=== PATIENT | male | born 1965 | race Two or more races ===

== ENCOUNTER 2022-11-07 14:18 | Emergency (ER) | payer MEDICARE, MEDICAID ==
[~2022-11-07] VITALS: Ht 165.1 cm; Wt 68.6 kg
[2022-11-07 16:41] VITALS: BP 149/69
== END 2022-11-07 16:49 | disposition home or self-care (01) ==
LOC: ER 14:18
DX: S86.911A Strain of unspecified muscle(s) and tendon(s) at lower leg level, right leg, initial encounter (principal); I10 Essential (primary) hypertension; E11.9 Type 2 diabetes mellitus without complications; W01.0XXA Fall on same level from slipping, tripping and stumbling without subsequent striking against object, initial encounter; Y93.89 Activity, other specified; Y92.89 Other specified places as the place of occurrence of the external cause; Y99.8 Other external cause status
CPT/HCPCS: 93971